=== PATIENT | female | born 1945 | race Caucasian/White ===

== ENCOUNTER 2017-06-30 17:19 | Inpatient (IN) | payer OTHER, MEDICARE ==
[2017-06-30] VITALS (9 sets, daily range): BP systolic 146–197; BP diastolic 84–93; PULSE 112–130; RESP 18–32; TEMP 98.1–98.7; O2SAT 82–96
[~2017-06-30] VITALS: Ht 162.6 cm; Wt 61.8 kg
[~2017-06-30 17:19] MED LIST: LORTA5 PO; TAMO20TA4 PO
[2017-06-30] MEDS ORDERED: methylPREDNISolone SOD SUCC 125 MG/2 ML VIAL IV PUSH ONE (17:45)
[2017-06-30] MEDS ORDERED: SODIUM CHLORIDE 0.9% FLUSH 10 ML FLUSH IVF PRN (17:45)
--- NOTE | 2017-06-30 17:48 | PD ---
HPI Chief Complaint: Respiratory Symptoms Time Seen by Provider: 17:31 Travel History International Travel<30 days: No Contact w/Intl Traveler<30days: No Traveled to known affect area: No History of Present Illness HPI The patient was seen and examined in the presence of the nurse. This patient complains of shortness of breath. It has been gradually worsening over 2 weeks. She was a smoker until 3 years ago. She uses an inhaler on occasion. She denies formal diagnosis of pulmonary disease. She denies fever or productive cough or chest pain. She has history of breast cancer but at this point she says that is cured and she is not getting chemoradiation. She did have a mastectomy. No history of PE. No alleviating factors. No exacerbating factors. Symptom severity is severe PFSH Past Medical History Arthritis: No Asthma: No Autoimmune Disease: No Blood Disorders: No Heart Rhythm Problems: No Cancer: Yes (BREAST) Cardiovascular Problems: No High Cholesterol: No Chemotherapy: Yes (BREAST CA) Chest Pain: No Congestive Heart Failure: No COPD: No Cerebrovascular Accident: No Diabetes: No Diminished Hearing: No Endocrine: No GERD: No Glaucoma: No Genitourinary: No Headaches: No Hepatitis: No Hiatal Hernia: No Hypertension: No Immune Disorder: No Kidney Stones: No Musculoskeletal: No Neurologic: No Psychiatric: No Reproductive: No Respiratory: No Immunizations Current: Yes Migraines: No Myocardial Infarction: No Radiation Therapy: Yes Seizures: No Sickle Cell Disease: No Sleep Apnea: No Thyroid Disease: No Ulcer: No Influenza Vaccination: Yes ?: Not Menopausal: Yes Past Surgical History Abdominal Surgery: No AICD: No Appendectomy: No Arteriovenous Shunt: No Cardiac Surgery: No Cholecystectomy: No Ear Surgery: No Eye Surgery: No Genitourinary Surgery: No Gynecologic Surgery: Yes (MASTECTOMY R. BREAST, LYMPH NODES) Insulin Pump: No Joint Replacement: No Mastectomy: Yes (RIGHT BREAST 2006 WITH CHEMOTHERAPY RT AXILLA 2013 BREAST CA RETURNED) Oral Surgery: Yes (TOOTH EXTRACTIONS FOR DENTURES) Pacemaker: No Thoracic Surgery: Yes (BREAST CANCER RIGHT) Other Surgery: Yes (R MASTECTOMY) Social History Alcohol Use: Yes (1-2 DAILY) Tobacco Use: No Substance Use: No Allergies-Medications (Allergen,Severity, Reaction): Coded Allergies: No Known Allergies (Verified Allergy, Unknown, 06/30/17) Reported Meds & Prescriptions Reported Meds & Active Scripts Active [place] 5/325 (Hydrocodone/Acetaminophen 5/325) 325 Mg/5 Mg Tab 1 Tab PO Q4HPRN Reported Tamoxifen Citrate 20 Mg Tab 20 Mg PO DAILY Review of Systems General / Constitutional: No: Fever Eyes: No: Visual changes HENT: No: Headaches Cardiovascular: Positive: Tachycardia, No: Chest Pain or Discomfort Respiratory: Positive: Shortness of Breath, Wheezing Gastrointestinal: No: Abdominal Pain Genitourinary: No: Dysuria Musculoskeletal: No: Pain Skin: No Rash Neurologic: No: Weakness Psychiatric: No: Depression Endocrine: No: Polydipsia Hematologic/Lymphatic: No: Easy Bruising Physical Exam Narrative GENERAL: Well-nourished, well-developed patient in respiratory distress. SKIN: Focused skin assessment reveals no rash and nodules. Skin is Warm and dry. HEAD: Atraumatic. Normocephalic. EYES: Pupils equal and round. No scleral icterus. No injection or drainage. ENT: No nasal bleeding or discharge. Mucous membranes pink and moist. NECK: Trachea midline. No JVD. CARDIOVASCULAR: Regular rate and rhythm. No murmur appreciated. RESPIRATORY: Positive accessory muscle use. Expiratory wheezing diffusely with diminished breath sounds throughout. Breath sounds equal bilaterally. GASTROINTESTINAL: Abdomen soft, non-tender, nondistended. Hepatic and splenic margins not palpable. MUSCULOSKELETAL: No obvious deformities. No clubbing. No cyanosis. No edema. NEUROLOGICAL: Awake and alert. No obvious cranial nerve deficits. Motor grossly within normal limits. Normal speech. PSYCHIATRIC: Appropriate mood and affect; insight and judgment normal. Data Data Last Documented VS Vital Signs Date Time Temp Pulse Resp B/P (MAP) Pulse Ox O2 Delivery O2 Flow Rate FiO2 06/30/17 19:24 94 Nasal Cannula 4.00 06/30/17 19:24 30 06/30/17 19:24 130 188/86 (120) 06/30/17 18:23 98.1 Orders Orders Complete Blood Count With Diff (06/30/17 17:38) Basic Metabolic Panel (Bmp) (06/30/17 17:38) Iv Access Insert/Monitor (06/30/17 17:38) Electrocardiogram (06/30/17 17:38) Ecg Monitoring (06/30/17 17:38) Oximetry (06/30/17 17:38) Oxygen Administration (06/30/17 17:38) Chest, Single Ap (06/30/17 17:38) Sodium Chloride 0.9% Flush (Ns Flush) (06/30/17 17:45) Methylprednisolone So Succ Inj (Solumedr (06/30/17 17:45) Albuterol-Ipratropium Neb (Duoneb Neb) (06/30/17 17:45) Ct Pulmonary Angiogram (06/30/17 ) Iohexol 350 Inj (Omnipaque 350 Inj) (06/30/17 19:26) Drug Screen, Random Urine (06/30/17 20:21) Admit To Inpatient (06/30/17 ) Vital Signs (Adult) Q4H (06/30/17 20:21) Activity Oob Ad [place] (06/30/17 ) Diet Heart Healthy (07/01/17 Breakfast) Sodium Chloride 0.9% Flush (Ns Flush) (06/30/17 21:00) Sodium Chloride 0.9% Flush (Ns Flush) (06/30/17 20:30) Albuterol-Ipratropium Neb (Duoneb Neb) (06/30/17 20:30) Albuterol-Ipratropium Neb (Duoneb Neb) (06/30/17 22:00) Budeson-Formot 160-4.5 Mcg Inh (Symbicor (06/30/17 21:00) Methylprednisolone So Succ Inj (Solumedr (06/30/17 20:30) Azithromycin (Zithromax) (06/30/17 20:30) Levofloxacin (Levaquin) (06/30/17 20:30) Basic Metabolic Panel (Bmp) (07/01/17 06:00) Complete Blood Count With Diff (07/01/17 06:00) Resp Incentive Spirometry (06/30/17 ) Consult Pulmonology (06/30/17 ) Copd Educator Consult (06/30/17 ) Heparin Inj (Heparin Inj) (06/30/17 21:00) Scd Bilateral/Knee High HUSSAIN.BID (06/30/17 20:21) Inpatient Certification (06/30/17 ) Clonidine (Catapres) (06/30/17 20:30) Acetylcysteine 10% Neb (Mucomyst 10% Neb (07/01/17 00:00) Admit Order (Ed Use Only) (06/30/17 20:31) Labs Laboratory Tests Test 06/30/17 17:50 White Blood Count 9.2 TH/MM3 Red Blood Count 3.19 MIL/MM3 Hemoglobin 11.1 GM/DL Hematocrit 32.6 % Mean Corpuscular Volume 102.3 FL Mean Corpuscular Hemoglobin 34.7 PG Mean Corpuscular Hemoglobin Concent 33.9 % Red Cell Distribution Width 13.2 % Platelet Count 344 TH/MM3 Mean Platelet Volume 7.3 FL Neutrophils (%) (Auto) 73.6 % Lymphocytes (%) (Auto) 10.6 % Monocytes (%) (Auto) 8.8 % Eosinophils (%) (Auto) 6.6 % Basophils (%) (Auto) 0.4 % Neutrophils # (Auto) 6.8 TH/MM3 Lymphocytes # (Auto) 1.0 TH/MM3 Monocytes # (Auto) 0.8 TH/MM3 Eosinophils # (Auto) 0.6 TH/MM3 Basophils # (Auto) 0.0 TH/MM3 CBC Comment DIFF FINAL Differential Comment Blood Urea Nitrogen 8 MG/DL Creatinine 0.79 MG/DL Random Glucose 111 MG/DL Calcium Level 9.2 MG/DL Sodium Level 125 MEQ/L Potassium Level 4.5 MEQ/L Chloride Level 90 MEQ/L Carbon Dioxide Level 23.1 MEQ/L Anion Gap 12 MEQ/L Estimat Glomerular Filtration Rate 72 ML/MIN MDM Medical Decision Making Medical Screen Exam Complete: Yes Emergency Medical Condition: Yes Medical Record Reviewed: Yes Differential Diagnosis COPD exacerbation, pneumonia, pneumothorax Narrative Course I have reviewed the patient's electronic medical record. I reviewed her oncology evaluation from May 2017 IV placed and labs sent I gave her a series of nebulizer treatments and place her on oxygen I gave her IV steroids I reviewed her chest x-ray which shows no pneumothorax or consolidation Patient was hypoxic upon room air and arrived critically ill Labs are reviewed. She is hyponatremic [address] of the chest to rule out PE. She does not have one. However she does have significant mucus plugging of the lower airways I reviewed this with the hospitalist will admit to intermediate care given her oxygen needs. I do not think she needs intensive care at this time There was some improvement with nebulizers but she is still short of breath She is saturating 96% on 4 L at this time Critical Care Narrative Aggregate critical care time was 40 minutes. Time to perform other separately billable procedures was not included in the critical care time. My time did not include minutes spent treating any other patients simultaneously or on activities that did not directly contribute to the patient's treatment. The services I provided to this patient were to treat and/or prevent clinically significant deterioration that could result in: Cardiopulmonary arrest, cardiac arrhythmia, respiratory collapse I provided critical care services requiring my management, as noted below: Chart data review, documentation time, medication orders and management, vital sign assessments/reviewing monitor data, ordering and reviewing lab tests, ordering and interpreting/reviewing x-rays and diagnostic studies, care of the patient and discussion of the patient with the admitting physicians. Diagnosis Primary Impression: Dyspnea Qualified Codes: R06.03 - Acute respiratory distress Additional Impressions: Mucus plugging of bronchi COPD exacerbation Admitting Information Admitting Physician Requests: Admit Benigno Marroquin MD June 30, 2017 17:48
[2017-06-30] MEDS: RESP: ALBUTEROL 2.5 MG/IPRATROPIUM 0.5 MG NEB (SCH) INH ×2 (17:49→23:35)
[2017-06-30 18:06] LABS: AUTOMATED NEUTROPHIL # 6.8 TH/MM3 (1.8-7.7); BASOPHIL % 0.4 % (0.0-2.0); EOSINOPHIL # 0.6 TH/MM3 (0-0.4); EOSINOPHIL % 6.6 % (0.0-4.0); HEMATOCRIT 32.6 % (35.0-46.0); HEMOGLOBIN 11.1 GM/DL (11.6-15.3); LYMPH % 10.6 % (9.0-44.0); MEAN CELL VOLUME 102.3 FL (80.0-100.0); MEAN CORPUSCULAR HEMOGLOBIN 34.7 PG (27.0-34.0); MEAN CORPUSCULAR HGB CONC 33.9 % (32.0-36.0); MEAN PLATELET VOLUME 7.3 FL (7.0-11.0); MONO % 8.8 % (0.0-8.0); MONOCYTE # 0.8 TH/MM3 (0-0.9); NEUT % 73.6 % (16.0-70.0); PLATELET COUNT 344 TH/MM3 (150-450); RED BLOOD COUNT 3.19 MIL/MM3 (4.00-5.30); RED CELL DISTRIBUTION WIDTH 13.2 % (11.6-17.2); WHITE BLOOD COUNT 9.2 TH/MM3 (4.0-11.0)
--- NOTE | 2017-06-30 18:17 | RADRPT ---
EXAM DATE/TIME: 06/30/2017 17:52 [facility] COMPARISON: No previous studies available for comparison. INDICATIONS : Shortness of breath. MEDICAL HISTORY : Carcinoma, breast. SURGICAL HISTORY : Mastectomy, right. ENCOUNTER: Initial ACUITY: 2 weeks PAIN SCORE: 0/10 LOCATION: Bilateral chest FINDINGS: A single view of the chest demonstrates no focal consolidation or significant effusion. Heart size wi thin normal limits. Mildly tortuous aorta. Apical pleural thickening on the right with parenchymal sc arring. Multiple surgical clips right axillary region. CONCLUSION: 1. No active disease. Diego Bustillo MD on June 30, 2017 at 18:14 Board Certified Radiologist. This report was verified electronically.
[2017-06-30 18:26] LABS: BICARBONATE 23.1 MEQ/L (21.0-32.0); CALCIUM 9.2 MG/DL (8.5-10.1)
[2017-06-30 18:29] LABS: CREATININE 0.79 MG/DL (0.50-1.00)
[2017-06-30] MEDS ORDERED: IOHEXOL 350 MG/ML 10 ML VIAL (for RAD DIAG) IVCONTRAST ONE (19:26)
--- NOTE | 2017-06-30 19:52 | RADRPT ---
EXAM DATE/TIME: 06/30/2017 19:09 [facility] COMPARISON: No previous studies available for comparison. INDICATIONS : Increasing shortness of breath for two weeks. IV CONTRAST: 75 cc Omnipaque 350 (iohexol) IV RADIATION DOSE: 9.17 CTDIvol (mGy) MEDICAL HISTORY : Carcinoma, breast. SURGICAL HISTORY : Mastectomy, right. ENCOUNTER: Initial ACUITY: 2 weeks PAIN SCALE: 6/10 LOCATION: Bilateral chest TECHNIQUE: Volumetric scanning of the chest was performed using a pulmonary embolism protocol MIP images were re constructed. Using automated exposure control and adjustment of the mA and/or kV according to patien t size, radiation dose was kept as low as reasonably achievable to obtain optimal diagnostic quality images. DICOM format image data is available electronically for review and comparison. Follow-up recommendations for detected pulmonary nodules are based at a minimum on nodule size and pa tient risk factors according to Fleischner Society Guidelines. FINDINGS: No filling defects are seen in the pulmonary arteries to suggest pulmonary embolic disease. There is pleural thickening and parenchymal opacity in the upper right lung this may be related to radiation c hange. There is fairly extensive intraluminal mucoid plugging in the distal right bronchus intermediu s and especially extensive plugging in the right lower lobe segmental bronchi and to a lesser extent in the right middle lobe bronchi. On the left side there is peribronchial thickening and some mild mucoid plugging and distal airways e specially in the left lower lobe. There is no hilar, mediastinal axillary adenopathy. Moderate coronary calcifications. No acute findin gs in the upper abdomen. CONCLUSION: 1. There is peribronchial thickening and fairly extensive mucoid plugging of the lower airways, espec ially in the right lower lobe. Differential diagnosis includes chronic bronchitis or some form of chr onic allergic response or asthma. 2. Negative for pulmonary embolus. Diego Bustillo MD on June 30, 2017 at 19:41 Board Certified Radiologist. This report was verified electronically.
[2017-06-30] MEDS ORDERED: cloNIDine HCL 0.1 MG TAB PO PRN (20:30)
[2017-06-30] MEDS ORDERED: RESP: ALBUTEROL 2.5 MG/IPRATROPIUM 0.5 MG NEB (PRN) NEB (20:45)
[2017-06-30] MEDS: LEVOFLOXACIN 750 MG TAB PO SCH (20:49)
[2017-06-30] MEDS: HEPARIN SODIUM - SQ 10,000 UNITS/ML VIAL SQ SCH (20:49)
[2017-06-30] MEDS: SODIUM CHLORIDE 0.9% FLUSH 10 ML FLUSH IV FLUSH SCH (21:00)
[2017-06-30] MEDS: BUDESONIDE-FORMOTEROL 160/4.5 MCG INHALER INH SCH (21:09)
[2017-06-30] MEDS ORDERED: RESP: ALBUTEROL 2.5 MG/IPRATROPIUM 0.5 MG NEB (SCH) INH (22:00)
[2017-06-30] MEDS: methylPREDNISolone SOD SUCC 125 MG/2 ML VIAL IV PUSH SCH (23:32)
[2017-06-30] MEDS: RESP: ACETYLCYSTEINE 10% 10 ML NEB NEB SCH (23:35)
[2017-07-01] VITALS (30 sets, daily range): BP systolic 127–155; BP diastolic 60–89; PULSE 89–138; RESP 17–39; TEMP 97.1–98.2; O2SAT 89–94
[2017-07-01] MEDS: RESP: ACETYLCYSTEINE 10% 10 ML NEB NEB SCH ×6 (03:29→23:10)
[2017-07-01] MEDS: RESP: ALBUTEROL 2.5 MG/IPRATROPIUM 0.5 MG NEB (SCH) INH ×6 (03:29→23:10)
[2017-07-01 05:12] LABS: AUTOMATED NEUTROPHIL # 5.4 TH/MM3 (1.8-7.7); BASOPHIL % 0.5 % (0.0-2.0); EOSINOPHIL % 0.1 % (0.0-4.0); HEMATOCRIT 31.5 % (35.0-46.0); HEMOGLOBIN 10.4 GM/DL (11.6-15.3); LYMPH % 5.4 % (9.0-44.0); LYMPHOCYTE # 0.3 TH/MM3 (1.0-4.8); MEAN CELL VOLUME 102.1 FL (80.0-100.0); MEAN CORPUSCULAR HEMOGLOBIN 33.6 PG (27.0-34.0); MONO % 0.9 % (0.0-8.0); MONOCYTE # 0.1 TH/MM3 (0-0.9); NEUT % 93.1 % (16.0-70.0); PLATELET COUNT 312 TH/MM3 (150-450); RED BLOOD COUNT 3.09 MIL/MM3 (4.00-5.30); RED CELL DISTRIBUTION WIDTH 13.3 % (11.6-17.2); WHITE BLOOD COUNT 5.9 TH/MM3 (4.0-11.0)
[2017-07-01] MEDS: methylPREDNISolone SOD SUCC 125 MG/2 ML VIAL IV PUSH SCH ×4 (05:17→23:44)
[2017-07-01 05:30] LABS: BICARBONATE 21.8 MEQ/L (21.0-32.0); CREATININE 0.61 MG/DL (0.50-1.00)
[2017-07-01] MEDS: ACETAMINOPHEN 325 MG TAB PO PRN (06:03)
[2017-07-01] MEDS: SODIUM CHLOR 0.9% 1000 ML INJ 1,000 ML IV SCH ×2 (06:04→17:55)
[2017-07-01] MEDS: SODIUM CHLORIDE 0.9% FLUSH 10 ML FLUSH IV FLUSH SCH ×2 (08:54→21:00)
[2017-07-01] MEDS: HEPARIN SODIUM - SQ 10,000 UNITS/ML VIAL SQ SCH ×2 (08:54→20:59)
[2017-07-01] MEDS: AZITHROMYCIN 250 MG TAB PO SCH (08:54)
[2017-07-01] MEDS: BUDESONIDE-FORMOTEROL 160/4.5 MCG INHALER INH SCH ×2 (08:54→20:57)
[2017-07-01] MEDS ORDERED: PNEUMOCOCCAL POLYVALENT INJ 25 MCG/0.5 ML SYR IM ONE (09:00)
--- NOTE | 2017-07-01 11:31 | EKG ---
Date Performed: 06/30/2017 Time Performed: 17:33:57 PTAGE: 72 years EKG: SINUS TACHYCARDIA ABNORMAL RHYTHM ECG PREVIOUS TRACING : 11/04/1997 20.28 DOCTOR: Yovani Hess Interpretating Date/Time 07/01/2017 11:29:28
[2017-07-01] MEDS: ACETAMINOPHEN/HYDROcodone 325 MG/5 MG TAB PO PRN ×2 (12:00→21:15)
--- NOTE | 2017-07-01 14:06 | HHI.HP ---
[facility] No Primary Care Physician Admission Diagnosis dyspnea,advanced mucous plugging Diagnoses: (1) Acute respiratory failure with hypoxia Diagnosis: Principal (2) Mucus plugging of bronchi Diagnosis: Principal (3) Hyponatremia Diagnosis: Principal (4) Hyperglycemia Diagnosis: Principal Chief Complaint: Shortness of breath and difficulty breathing Travel History International Travel<30 Days: No Contact w/Intl Traveler <30 Da: No Traveled to Known Affected Are: No History of Present Illness This is a 72-year-old female with known history of breast cancer, chronic tobacco use who presented to the hospital because of shortness of breath and dyspnea. Patient states that she is in normal state of health until last week when she started developing upper respiratory symptoms with cough and congestion. She started using Robitussin and Mucinex without any improvement. Then over the weekend on Friday and Friday her respiratory status progressively got worse where she cannot take 2 steps without getting very dyspneic. Patient states that she could not even move around or catch her breath on Friday so she came to the emergency department for evaluation. On presentation the patient had O2 saturation of 82% she is immediately put on oxygen with improvement to 94%. Patient still requiring increased O2 supplementation. Patient had CT scan done which did show peribronchial thickening and fairly extensive mucoid plugging in the lower airways especially the right lower lobe. Because of her hypoxia, mucous plugging, difficulty breathing patient was admitted to the ICU for continued care and management. Patient indicates this is similar to when she had pneumonia back in March. She states that her primary medical doctor treated her then with antibiotic injection as well as 2 pill form antibiotics. She try to contact her primary medical doctor before coming to the hospital however he is since retired. Review of Systems Respiratory: COMPLAINS OF: Cough, Shortness of breath Cardiovascular: COMPLAINS OF: Dyspnea on Exertion Except as stated in HPI: all other systems reviewed are Neg Past Family Social History Past Medical History History of breast cancer Chronic tobacco use Past Surgical History Right breast maxillectomy Right axillary cancer removal Right cataract surgery Reported Medications Reported Meds & Active Scripts Active Allergies: Coded Allergies: No Known Allergies (Verified Allergy, Unknown, 06/30/17) Family History Reviewed and significant for mother with lung cancer Social History Patient states that he still smoking intermittently 1-2 cigarettes daily. She used to smoke up to a pack of cigarettes a day since she was 25 years old. Patient indicates that she does use alcohol occasionally. Denies any illicit drug use Physical Exam Vital Signs Vital Signs Date Time Temp Pulse Resp B/P (MAP) Pulse Ox O2 Delivery O2 Flow Rate FiO2 07/01/17 11:01 120 22 132/66 (88) 07/01/17 10:01 120 24 132/62 (85) 07/01/17 10:00 110 07/01/17 09:01 126 26 141/72 (95) 07/01/17 08:01 97.1 128 39 139/73 (95) 07/01/17 08:00 89 07/01/17 07:34 93 Nasal Cannula 3.00 07/01/17 07:03 23 07/01/17 06:00 114 07/01/17 04:30 120 07/01/17 04:30 120 20 93 07/01/17 04:00 138 07/01/17 04:00 98.0 138 32 144/76 (98) 92 07/01/17 03:00 118 22 151/70 (97) 92 07/01/17 02:00 116 07/01/17 02:00 116 22 140/82 (101) 89 07/01/17 01:00 122 06/30/17 23:35 93 Nasal Cannula 3.00 06/30/17 23:30 112 06/30/17 22:36 98.7 120 32 146/84 (104) 95 06/30/17 20:43 95 Nasal Cannula 4.00 06/30/17 19:24 94 Nasal Cannula 4.00 06/30/17 19:24 30 94 Nasal Cannula 4.00 06/30/17 19:24 130 30 188/86 (120) 94 Nasal Cannula 4.00 06/30/17 18:23 98.1 127 18 186/88 (120) 93 Nasal Cannula 3.00 06/30/17 17:56 20 96 Nasal Cannula 4.00 06/30/17 17:50 95 Nasal Cannula 2.00 06/30/17 17:40 95 Nasal Cannula 4.00 06/30/17 17:36 22 94 Nasal Cannula 4.00 06/30/17 17:33 98.1 124 22 197/93 (127) 82 Physical Exam GENERAL: Well-developed, well-nourished, in no acute distress. alert and orientated HEENT: Head is normocephalic without any lesions or masses noted. Facial features are symmetric. Eyes: Pupils equal round reactive to light. Extraocular muscles are intact. Conjunctivae were clear. Oropharyngeal: Pharynx without any erythema edema. Tongue is midline without deviation. Buccal mucosa is moist without any masses or lesions NECK: Supple without any masses. Trachea midline no deviation. No JVD, no bruits are appreciated CARDIAC: Tachycardia, regular rhythm. S1/S2 are heard. No murmurs gallops or rubs. LUNGS: Diminished breath sounds noted bilaterally. No wheeze, rhonchi or rales. No use of accessory muscles on inspiration or expiration. ABDOMEN: Soft, nontender. Nondistended. Bowel sounds heard in all 4 quadrants. No organomegaly or masses. Negative rebound, negative guarding EXTREMITIES: No edema, pulses are equal bilaterally. No cyanosis or clubbing NEUROLOGY: Mood and affect appear appropriate. Cranial nerves II through XII grossly intact. Muscle strength 5/5 in upper and lower extremities bilaterally. Deep tendon reflexes are 2+ in upper and lower extremities bilaterally. Laboratory Laboratory Tests Test 06/30/17 17:50 06/30/17 20:50 07/01/17 04:50 White Blood Count 9.2 5.9 Red Blood Count 3.19 3.09 Hemoglobin 11.1 10.4 Hematocrit 32.6 31.5 Mean Corpuscular Volume 102.3 102.1 Mean Corpuscular Hemoglobin 34.7 33.6 Mean Corpuscular Hemoglobin Concent 33.9 33.0 Red Cell Distribution Width 13.2 13.3 Platelet Count 344 312 Mean Platelet Volume 7.3 7.0 Neutrophils (%) (Auto) 73.6 93.1 Lymphocytes (%) (Auto) 10.6 5.4 Monocytes (%) (Auto) 8.8 0.9 Eosinophils (%) (Auto) 6.6 0.1 Basophils (%) (Auto) 0.4 0.5 Neutrophils # (Auto) 6.8 5.4 Lymphocytes # (Auto) 1.0 0.3 Monocytes # (Auto) 0.8 0.1 Eosinophils # (Auto) 0.6 0.0 Basophils # (Auto) 0.0 0.0 CBC Comment DIFF FINAL DIFF FINAL Differential Comment Blood Urea Nitrogen 8 8 Creatinine 0.79 0.61 Random Glucose 111 144 Calcium Level 9.2 9.0 Sodium Level 125 123 Potassium Level 4.5 3.9 Chloride Level 90 87 Carbon Dioxide Level 23.1 21.8 Anion Gap 12 14 Estimat Glomerular Filtration Rate 72 96 Urine Opiates Screen POS Urine Barbiturates Screen NEG Urine Amphetamines Screen NEG Urine Benzodiazepines Screen NEG Urine Cocaine Screen NEG Urine Cannabinoids Screen NEG Result Diagram: 07/01/17 0450 07/01/17 0450 Imaging Last Impressions Chest X-Ray 06/30/17 1738 Signed Impressions: Service Date/Time: Friday, June 30, 2017 17:52 - CONCLUSION: 1. No active disease. Diego Bustillo MD CT Angiography 06/30/17 0000 Signed Impressions: Service Date/Time: Friday, June 30, 2017 19:09 - CONCLUSION: 1. There is peribronchial thickening and fairly extensive mucoid plugging of the lower airways, especially in the right lower lobe. Differential diagnosis includes chronic bronchitis or some form of chronic allergic response or asthma. 2. Negative for pulmonary embolus. Diego Bustillo MD Caprini VTE Risk Assessment Caprini VTE Risk Assessment: Mod/High Risk (score >= 2) Caprini Risk Assessment Model Point Value = 1 Point Value = 2 Point Value = 3 Point Value = 5 Age 41-60 Minor surgery BMI > 25 kg/m2 Swollen legs Varicose veins or History of unexplained or recurrent spontaneous Oral contraceptives or hormone replacement Sepsis (< 1 month) Serious lung disease, including pneumonia (< 1 month) Abnormal pulmonary function Acute myocardial infarction Congestive heart failure (< 1 month) History of inflammatory bowel disease Medical patient at bed rest Age 61-74 Arthroscopic surgery Major open surgery (> 45 min) Laparoscopic surgery (> 45 min) Malignancy Confined to bed (> 72 hours) Immobilizing plaster cast Central venous access Age >= 75 History of VTE Family history of VTE Factor V Leiden Prothrombin [id number] Lupus anticoagulant Anticardiolipin antibodies Elevated serum homocysteine Heparin-induced thrombocytopenia Other congenital or acquired thrombophilia Stroke (< 1 month) Elective arthroplasty Hip, pelvis, or leg fracture Acute spinal cord injury (< 1 month) Prophylaxis Regimen Total Risk Factor Score Risk Level Prophylaxis Regimen 0-1 Low Early ambulation 2 Moderate Order ONE of the following: *Sequential Compression Device (SCD) *Heparin 5000 units SQ BID 3-4 Higher Order ONE of the following medications: *Heparin 5000 units SQ TID *Enoxaparin/Lovenox 40 mg SQ daily (WT < 150 kg, CrCl > 30 mL/min) *Enoxaparin/Lovenox 30 mg SQ daily (WT < 150 kg, CrCl > 10-29 mL/min) *Enoxaparin/Lovenox 30 mg SQ BID (WT < 150 kg, CrCl > 30 mL/min) AND/OR *Sequential Compression Device (SCD) 5 or more Highest Order ONE of the following medications: *Heparin 5000 units SQ TID (Preferred with Epidurals) *Enoxaparin/Lovenox 40 mg SQ daily (WT < 150 kg, CrCl > 30 mL/min) *Enoxaparin/Lovenox 30 mg SQ daily (WT < 150 kg, CrCl > 10-29 mL/min) *Enoxaparin/Lovenox 30 mg SQ BID (WT < 150 kg, CrCl > 30 mL/min) AND *Sequential Compression Device (SCD) Assessment and Plan Assessment and Plan Acute hypoxic respiratory failure -Multifactorial with chronic tobacco use, mucous plugging, possible underlying chronic obstructive pulmonary disease -Continue O2 supplementation to maintain O2 sats greater than 92% -Continue Levaquin, Zithromax -Continue Solu-Medrol -Continue duo nebs/Mucomyst -Continue Symbicort -Add guaifenesin -Start Acapella -Tipple Repairer consulted, awaiting recommendations -Patient will likely require bronchoscopy for mucous plug removal for definitive treatment -Check influenza testing, sputum culture, Legionella, strep pneumo Sinus tachycardia -Likely secondary to respiratory failure, albuterol, steroid -Check TSH Hyponatremia -Unknown etiology -Obtain osmolality studies, urine sodium Hyperglycemia -Could be secondary to steroids -Check hemoglobin A1c -Accu-Cheks with sliding scale insulin -Start diabetic diet DVT prevention -Subcutaneous heparin Physician Certification 2 Midnight Certification Type: Admission for Inpatient Services Order for Inpatient Services The services are ordered in accordance with Medicare regulations or non- Medicare payer requirements, as applicable. In the case of services not specified as inpatient-only, they are appropriately provided as inpatient services in accordance with the 2-midnight benchmark. Estimated LOS (days): 3 days is the estimated time the patient will need to remain in the hospital, assuming treatment plan goals are met and no additional complications. Post-Hospital Plan: Not yet determined Benigno Rene July 01, 2017 14:06
[2017-07-01] MEDS ORDERED: GLUCAGON 1 MG/ML VIAL OTHER PRN (14:15)
[2017-07-01] MEDS ORDERED: DEXTROSE 50% IN WATER 50 ML VIAL(D50) IV PUSH PRN (14:15)
[2017-07-01] MEDS: guaiFENesin E.R. 600 MG TAB PO SCH ×2 (15:19→20:57)
[2017-07-01] MEDS: INSULIN ASPART SUPPLEMENTAL SCALE SQ SCH ×2 (17:35→21:14)
[2017-07-01] MEDS: LEVOFLOXACIN 750 MG TAB PO SCH (20:57)
[2017-07-01] MEDS: BENZONATATE 100 MG CAP PO PRN (21:17)
[2017-07-01 22:06] LABS: HEMOGLOBIN A1C 5.1 % (4.3-6.0)
[2017-07-02] VITALS (38 sets, daily range): BP systolic 103–164; BP diastolic 51–88; PULSE 109–128; RESP 13–31; TEMP 97.6–98.9; O2SAT 91–98
[2017-07-02] MEDS: ACETAMINOPHEN/HYDROcodone 325 MG/5 MG TAB PO PRN ×2 (01:21→23:56)
[2017-07-02 01:48] LABS: SODIUM,RANDOM URINE 31 MEQ/L
[2017-07-02] MEDS ORDERED: diphenhydrAMINE HCL 25 MG CAP PO ONE (02:15)
[2017-07-02 02:19] LABS: OSMOLALITY,URINE 155 MOSM/KG (300-1300)
[2017-07-02] MEDS: RESP: ACETYLCYSTEINE 10% 10 ML NEB NEB SCH ×6 (03:19→23:05)
[2017-07-02] MEDS: RESP: ALBUTEROL 2.5 MG/IPRATROPIUM 0.5 MG NEB (SCH) INH ×6 (03:19→23:04)
[2017-07-02] MEDS: SODIUM CHLOR 0.9% 1000 ML INJ 1,000 ML IV SCH (04:51)
[2017-07-02 05:37] LABS: AUTOMATED NEUTROPHIL # 13.1 TH/MM3 (1.8-7.7); BASOPHIL # 0.4 TH/MM3 (0-0.2); BASOPHIL % 2.8 % (0.0-2.0); HEMATOCRIT 30.6 % (35.0-46.0); LYMPH % 2.9 % (9.0-44.0); LYMPHOCYTE # 0.4 TH/MM3 (1.0-4.8); MEAN CELL VOLUME 101.8 FL (80.0-100.0); MEAN CORPUSCULAR HEMOGLOBIN 33.4 PG (27.0-34.0); MEAN CORPUSCULAR HGB CONC 32.8 % (32.0-36.0); MEAN PLATELET VOLUME 7.4 FL (7.0-11.0); MONO % 2.6 % (0.0-8.0); MONOCYTE # 0.4 TH/MM3 (0-0.9); NEUT % 91.7 % (16.0-70.0); PLATELET COUNT 319 TH/MM3 (150-450); RED CELL DISTRIBUTION WIDTH 13.4 % (11.6-17.2); WHITE BLOOD COUNT 14.3 TH/MM3 (4.0-11.0)
[2017-07-02] MEDS: methylPREDNISolone SOD SUCC 125 MG/2 ML VIAL IV PUSH SCH ×4 (05:43→23:56)
[2017-07-02 05:56] LABS: BICARBONATE 21.9 MEQ/L (21.0-32.0); CALCIUM 8.5 MG/DL (8.5-10.1); CREATININE 0.5 MG/DL (0.50-1.00); MAGNESIUM 1.7 MG/DL (1.5-2.5)
[2017-07-02] MEDS: INSULIN ASPART SUPPLEMENTAL SCALE SQ SCH ×4 (08:00→22:08)
--- NOTE | 2017-07-02 08:34 | MB ---
cc: Raj Navas MD DATE: 07/01/2017 REQUESTING PHYSICIAN: Benigno Rene MD REASON FOR CONSULTATION: Evaluate for pneumonia and shortness of breath and respiratory insufficiency. HISTORY OF PRESENT ILLNESS: Ms. Stacy is a pleasant 72-year-old female with history of CA of the breast, status post right breast surgery, then she developed recurrence of the cancer. She had received chemotherapy on the first occasion and radiation the second time. She was not feeling well for the last 2 weeks or so. Recently, she started having cough and congestion, small amount of mucus production, did not have fever. She has no night sweats but was getting more short of breath. She was admitted to the hospital. She had a workup done. Her WBC count is 5.9, hemoglobin 10.4, hematocrit 31.5, MCV 102, platelet count 312. Sodium 123, potassium 3.9, chloride 87, CO2 of 21, BUN 8, creatinine 0.61. Her toxicology screen was positive for opiates. She had a CTA of the chest done. It does not show any pulmonary embolism. It shows peribronchial thickening with possible mucus plugging and has a right upper lobe infiltrate. Her nasal aspirate influenza antigen is pending. Pneumococcal antigen is negative. Legionella antigen is pending. Currently, she is on 4 liter nasal cannula, looks comfortable. PAST MEDICAL HISTORY: Significant for history of CA of the breast, status post surgery, radiation and chemotherapy, history of right eye cataract surgery done. MEDICATIONS: Currently taking, 1. Mucinex 600 mg twice a day. 2. Tessalon 100 mg 3 times a day. 3. [place] 5/325, 4. Solu-Medrol 40 mg q. 6 hours. 5. Mucomyst nebulizer treatment 6. Albuterol and Atrovent nebulizer treatment 7. Symbicort twice a day. 8. Levaquin 750 mg a day. 8. Zithromax 500 mg a day. ALLERGIES: NO KNOWN DRUG ALLERGIES. SOCIAL HISTORY: She is single. 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 She has a history of smoking, which she quit. FAMILY HISTORY: She has 2 children. REVIEW OF SYSTEMS: Normally, she is up, around and active. Weight is stable. No DVT or pulmonary embolism, no seizure or epilepsy. PHYSICAL EXAMINATION: GENERAL: Moderately built, well nourished female not in acute distress. VITAL SIGNS: Blood pressure 143/69, heart rate 124, temperature 98.2, respirations 22. HEENT: Pupils are equal and reactive to light. Oral mucosa and nasal mucosa normal. NECK: Supple. JVP not raised. CHEST: Scattered rales. HEART: S1, S2 normal. ABDOMEN: Benign. EXTREMITIES: No edema. IMPRESSION: 1. Pneumonia. 2. Mucus plugging. 3. Hyponatremia. 4. Sinus tachycardia. 5. History of carcinoma of the breast. PLAN: I discussed with the patient we will continue antibiotic Levaquin and Zithromax. Aerosol treatment with albuterol and Atrovent. Encouraged her to use Acapella. Continue Mucomyst nebulizer treatment. If her breathing gets worse or there is any worsening of plugging/infilterates, we will consider bronchoscopy. Further treatment will depend on the course in the hospital. Thank you Dr. Benigno Rene for this consult. MD DAV Jonas/SA/ , 07:02 PM , 07:33 PM STELLA
[2017-07-02] MEDS: SODIUM CHLORIDE 0.9% FLUSH 10 ML FLUSH IV FLUSH SCH ×2 (09:00→22:06)
[2017-07-02] MEDS: AZITHROMYCIN 250 MG TAB PO SCH (09:08)
[2017-07-02] MEDS: guaiFENesin E.R. 600 MG TAB PO SCH ×2 (09:08→22:07)
[2017-07-02] MEDS: HEPARIN SODIUM - SQ 10,000 UNITS/ML VIAL SQ SCH ×2 (09:08→22:08)
[2017-07-02] MEDS: BUDESONIDE-FORMOTEROL 160/4.5 MCG INHALER INH SCH ×2 (09:08→22:05)
[2017-07-02] MEDS ORDERED: CHLORHEXIDINE GLUCONATE 2 % 1 PACK (2 CLOTHS)(extra cloths) TOPICAL PRN (09:15)
[2017-07-02] MEDS: ALPRAZolam 0.25 MG TAB PO PRN (10:11)
--- NOTE | 2017-07-02 13:19 | HHI.PR ---
Subjective Remarks Patient seen and examined today for follow-up on acute hypoxic respiratory failure, pneumonia, chronic obstructive pulmonary disease. Patient doing well today. Denies any new complaints. Still status quo with hypoxia requiring 4 L nasal cannula, still tachycardic 120s. Patient does remain afebrile. Patient is eager to go home. Patient remains afebrile Objective Vitals Vital Signs Date Time Temp Pulse Resp B/P (MAP) Pulse Ox O2 Delivery O2 Flow Rate FiO2 07/02/17 11:01 119 30 114/67 (83) 97 07/02/17 10:01 120 30 138/62 (87) 94 07/02/17 10:00 122 07/02/17 09:01 126 24 133/86 (102) 91 07/02/17 08:01 126 23 127/57 (80) 93 07/02/17 08:01 98.9 118 23 127/57 (80) 93 07/02/17 08:00 124 26 94 07/02/17 08:00 112 07/02/17 07:14 98 Nasal Cannula 4.00 07/02/17 07:01 116 13 107/51 (69) 97 07/02/17 07:01 116 13 107/51 (69) 97 07/02/17 06:12 115 07/02/17 06:01 116 15 132/61 (84) 98 07/02/17 05:01 118 14 122/58 (79) 95 07/02/17 04:01 98.8 118 14 103/55 (71) 96 07/02/17 04:00 118 07/02/17 03:01 112 15 124/64 (84) 98 07/02/17 02:01 128 25 164/88 (113) 97 07/02/17 02:00 118 07/02/17 01:01 118 17 137/72 (93) 93 07/02/17 00:01 98.0 128 21 146/66 (92) 92 07/02/17 00:00 120 07/01/17 23:01 122 17 148/70 (96) 93 07/01/17 22:01 128 19 152/67 (95) 94 07/01/17 22:00 125 07/01/17 21:01 128 25 155/76 (102) 93 07/01/17 20:01 98.0 132 19 127/65 (85) 92 07/01/17 19:26 93 Nasal Cannula 4.00 07/01/17 19:01 126 24 154/73 (100) 93 07/01/17 18:01 98.2 124 22 143/69 (93) 93 07/01/17 18:00 123 07/01/17 17:01 122 27 134/60 (84) 89 07/01/17 16:01 134 30 144/89 (107) 90 07/01/17 16:00 123 07/01/17 15:01 116 19 145/70 (95) 07/01/17 14:01 118 20 144/67 (92) 07/01/17 14:00 105 I/O 07/01/17 07/01/17 07/01/17 07/02/17 07/02/17 07/02/17 07:00 15:00 23:00 07:00 15:00 23:00 Intake Total 480 ml 1428 ml 1966 ml Output Total 350 ml 100 ml 1500 ml Balance 130 ml -100 ml 1428 ml 466 ml Intake Oral 480 ml 420 ml IV Total 1008 ml 1966 ml Output Urine Total 350 ml 100 ml 1500 ml Stool Total 0 ml # Voids 4 Result Diagram: 07/02/17 0457 07/02/17 0457 Objective Remarks GENERAL: Well-developed, well-nourished, in no acute distress. alert and orientated HEENT: Head is normocephalic without any lesions or masses noted. Facial features are symmetric. Eyes: Extraocular muscles are intact. Conjunctivae were clear. NECK: Supple without any masses. Trachea midline no deviation. No JVD, CARDIAC: Regular rhythm, regular rate. S1/S2 are heard. No murmurs gallops or rubs. LUNGS: Diminished breath sounds noted bilaterally. No wheeze, rhonchi or rales. No use of accessory muscles on inspiration or expiration. ABDOMEN: Soft, nontender. Nondistended. Bowel sounds heard in all 4 quadrants. No organomegaly or masses. Negative rebound, negative guarding EXTREMITIES: No edema, pulses are equal bilaterally. No cyanosis or clubbing NEUROLOGY: Mood and affect appear appropriate. Cranial nerves II through XII grossly intact. Moving all extremities, speech clear Urinary Catheter: No Vascular Central Line Catheter: No A/P Assessment and Plan Acute hypoxic respiratory failure -Multifactorial with chronic tobacco use, mucous plugging, possible underlying chronic obstructive pulmonary disease -Continue O2 supplementation to maintain O2 sats greater than 92% -Continue Levaquin, Zithromax -Continue Solu-Medrol -Continue duo nebs/Mucomyst -Continue Symbicort -Continue guaifenesin -Continue Acapella -Basket Grader consulted, recommending continuation of current treatment plan -Patient will likely require bronchoscopy if no significant improvement or patient worsens -Influenza testing, Legionella, strep pneumo testing were negative -Awaiting sputum culture Sinus tachycardia -Likely secondary to respiratory failure, albuterol, steroid -TSH 0.781 Hyponatremia -Serum osmolality 272, urine osmolality 155, urine sodium 31 -Start fluid restriction Hyperglycemia -Could be secondary to steroids -Hemoglobin A1c 5.1 -Accu-Cheks with sliding scale insulin -Continue diabetic diet DVT prevention -Subcutaneous heparin Discharge Planning Discharge planning 24-48 hours, depending on patient's response to treatment, weaning off oxygen. Benigno Rene July 02, 2017 13:19
[2017-07-02] MEDS: ACETAMINOPHEN 325 MG TAB PO PRN (18:20)
--- NOTE | 2017-07-02 20:26 | HHI.PR ---
Subjective Remarks 72 YOWF with H/O ca breast, Pn, Hypoxia Breathing better no Fever Started coughing up some sp No Palpitation, has techycardia Objective Vital Signs Vital Signs Date Time Temp Pulse Resp B/P (MAP) Pulse Ox O2 Delivery O2 Flow Rate FiO2 07/02/17 19:01 112 22 132/69 (90) 92 07/02/17 18:01 97.6 116 22 135/68 (90) 92 07/02/17 18:00 114 07/02/17 17:01 116 15 133/66 (88) 96 07/02/17 16:01 122 23 151/72 (98) 93 07/02/17 16:00 121 07/02/17 15:01 118 28 156/67 (96) 95 07/02/17 14:01 118 19 135/63 (87) 93 07/02/17 14:00 109 07/02/17 13:01 119 31 142/60 (87) 93 07/02/17 12:01 98.5 122 16 121/65 (83) 93 07/02/17 12:00 116 07/02/17 11:01 119 30 114/67 (83) 97 07/02/17 10:01 120 30 138/62 (87) 94 07/02/17 10:00 122 07/02/17 09:01 126 24 133/86 (102) 91 07/02/17 08:01 126 23 127/57 (80) 93 07/02/17 08:01 98.9 118 23 127/57 (80) 93 07/02/17 08:00 124 26 94 07/02/17 08:00 112 07/02/17 07:14 98 Nasal Cannula 4.00 07/02/17 07:01 116 13 107/51 (69) 97 07/02/17 07:01 116 13 107/51 (69) 97 07/02/17 06:12 115 07/02/17 06:01 116 15 132/61 (84) 98 07/02/17 05:01 118 14 122/58 (79) 95 07/02/17 04:01 98.8 118 14 103/55 (71) 96 07/02/17 04:00 118 07/02/17 03:01 112 15 124/64 (84) 98 07/02/17 02:01 128 25 164/88 (113) 97 07/02/17 02:00 118 07/02/17 01:01 118 17 137/72 (93) 93 07/02/17 00:01 98.0 128 21 146/66 (92) 92 07/02/17 00:00 120 07/01/17 23:01 122 17 148/70 (96) 93 07/01/17 22:01 128 19 152/67 (95) 94 07/01/17 22:00 125 07/01/17 21:01 128 25 155/76 (102) 93 I/O 07/01/17 07/01/17 07/01/17 07/02/17 07/02/17 07/02/17 07:00 15:00 23:00 07:00 15:00 23:00 Intake Total 480 ml 1428 ml 1966 ml 600 ml Output Total 350 ml 100 ml 1500 ml 480 ml Balance 130 ml -100 ml 1428 ml 466 ml 120 ml Intake Oral 480 ml 420 ml 600 ml IV Total 1008 ml 1966 ml Output Urine Total 350 ml 100 ml 1500 ml 480 ml Stool Total 0 ml # Voids 4 Result Diagram: 07/02/17 0457 07/02/17 0457 Objective Remarks GENERAL: WBWN WF,NAD SKIN: Warm and dry. HEAD: Normocephalic. EYES: No scleral icterus. No injection or drainage. NECK: Supple, trachea midline. No JVD or lymphadenopathy. CARDIOVASCULAR: Regular rate and rhythm without murmurs, gallops, or rubs. RESPIRATORY: Breath sounds equal bilaterally. No accessory muscle use. GASTROINTESTINAL: Abdomen soft, non-tender, nondistended. MUSCULOSKELETAL: No cyanosis, or edema. BACK: Nontender without obvious deformity. No CVA tenderness. A/P Assessment and Plan IMPRESSION: 1. Pneumonia. 2. Mucus plugging. 3. Hyponatremia. 4. Sinus tachycardia. 5. History of carcinoma of the breast. PLAN: Cont Abx Aerosol nebs Mucomyst nebs IV Solumedrol Supplement 02 CXR in Raj Ortiz MD July 02, 2017 20:26
[2017-07-02] MEDS: LEVOFLOXACIN 750 MG TAB PO SCH (22:07)
[2017-07-02] MEDS: SODIUM CHLORIDE 0.9% FLUSH 10 ML FLUSH IV FLUSH PRN (23:56)
[2017-07-03] VITALS (44 sets, daily range): BP systolic 123–158; BP diastolic 61–94; PULSE 90–134; RESP 13–30; TEMP 97.6–98; O2SAT 90–97
[2017-07-03] MEDS: BENZONATATE 100 MG CAP PO PRN
[2017-07-03] MEDS: ALPRAZolam 0.25 MG TAB PO PRN (02:41)
[2017-07-03] MEDS: CHLORHEXIDINE GLUCONATE 2 % 1 PACK (2 CLOTHS)(taper/protocol) TOPICAL SCH (04:00)
[2017-07-03] MEDS: RESP: ALBUTEROL 2.5 MG/IPRATROPIUM 0.5 MG NEB (SCH) INH ×6 (04:14→23:19)
[2017-07-03] MEDS: RESP: ACETYLCYSTEINE 10% 10 ML NEB NEB SCH ×6 (04:14→23:19)
[2017-07-03 05:42] LABS: AUTOMATED NEUTROPHIL # 11.1 TH/MM3 (1.8-7.7); BASOPHIL # 0.4 TH/MM3 (0-0.2); BASOPHIL % 3.2 % (0.0-2.0); EOSINOPHIL % 0.4 % (0.0-4.0); HEMATOCRIT 30.7 % (35.0-46.0); HEMOGLOBIN 9.8 GM/DL (11.6-15.3); LYMPH % 4.3 % (9.0-44.0); LYMPHOCYTE # 0.5 TH/MM3 (1.0-4.8); MEAN CELL VOLUME 102.4 FL (80.0-100.0); MEAN CORPUSCULAR HEMOGLOBIN 32.6 PG (27.0-34.0); MEAN CORPUSCULAR HGB CONC 31.8 % (32.0-36.0); MEAN PLATELET VOLUME 7.4 FL (7.0-11.0); MONO % 2.8 % (0.0-8.0); MONOCYTE # 0.3 TH/MM3 (0-0.9); NEUT % 89.3 % (16.0-70.0); PLATELET COUNT 298 TH/MM3 (150-450); RED CELL DISTRIBUTION WIDTH 13.3 % (11.6-17.2); WHITE BLOOD COUNT 12.3 TH/MM3 (4.0-11.0)
[2017-07-03 05:51] LABS: CALCIUM 8.9 MG/DL (8.5-10.1)
[2017-07-03 05:52] LABS: BICARBONATE 23.2 MEQ/L (21.0-32.0); MAGNESIUM 1.9 MG/DL (1.5-2.5)
[2017-07-03 05:55] LABS: CREATININE 0.54 MG/DL (0.50-1.00)
--- NOTE | 2017-07-03 06:15 | RADRPT ---
EXAM DATE/TIME: 07/03/2017 05:34 [facility] COMPARISON: CHEST SINGLE AP, June 30, 2017, 17:52. INDICATIONS : Shortness of breath MEDICAL HISTORY : Carcinoma, breast. SURGICAL HISTORY : Mastectomy, right. ENCOUNTER: Subsequent ACUITY: 2 weeks PAIN SCORE: 0/10 LOCATION: Bilateral chest FINDINGS: A single view of the chest demonstrates the lungs to be symmetrically aerated without evidence of mas s, infiltrate or effusion. There is stable scarring in the right lung apex. The cardiomediastinal con tours are unremarkable. Osseous structures are intact. Multiple surgical clips and jamal again not ed in the right axilla. Breast implants are present. CONCLUSION: No acute disease. Shaun Farrell MD on July 03, 2017 at 6:13 Board Certified Radiologist. This report was verified electronically.
[2017-07-03] MEDS: SODIUM CHLORIDE 0.9% FLUSH 10 ML FLUSH IV FLUSH PRN ×2 (06:22→23:43)
[2017-07-03] MEDS: methylPREDNISolone SOD SUCC 125 MG/2 ML VIAL IV PUSH SCH ×4 (06:22→23:43)
[2017-07-03] MEDS: INSULIN ASPART SUPPLEMENTAL SCALE SQ SCH ×4 (08:00→21:00)
[2017-07-03] MEDS: AZITHROMYCIN 250 MG TAB PO SCH (08:43)
[2017-07-03] MEDS: guaiFENesin E.R. 600 MG TAB PO SCH ×2 (08:43→22:02)
[2017-07-03] MEDS: ACETAMINOPHEN/HYDROcodone 325 MG/5 MG TAB PO PRN ×2 (08:44→23:43)
[2017-07-03] MEDS: HEPARIN SODIUM - SQ 10,000 UNITS/ML VIAL SQ SCH ×2 (08:45→22:02)
[2017-07-03] MEDS: SODIUM CHLORIDE 0.9% FLUSH 10 ML FLUSH IV FLUSH SCH ×2 (08:46→22:19)
[2017-07-03] MEDS: BUDESONIDE-FORMOTEROL 160/4.5 MCG INHALER INH SCH ×2 (08:46→22:02)
[2017-07-03] MEDS ORDERED: NEBULIZER1 MI1 (10:37)
--- NOTE | 2017-07-03 10:40 | HHI.PR ---
Subjective Remarks Patient seen and examined today for follow-up on hypoxemia, chronic objective pulmonary disease, pneumonia. Patient is improving slowly. She is now down to 2 L nasal cannula with O2 saturations 92-94%. Patient still with mild tachycardia. Patient remains afebrile. Discussed with the patient treatment plan and prognosis. Objective Vitals Vital Signs Date Time Temp Pulse Resp B/P (MAP) Pulse Ox O2 Delivery O2 Flow Rate FiO2 07/03/17 09:44 18 07/03/17 08:00 102 07/03/17 07:41 94 Nasal Cannula 2.00 07/03/17 06:11 107 07/03/17 06:01 108 13 146/71 (96) 96 07/03/17 05:01 112 19 138/61 (86) 96 07/03/17 04:01 98.0 102 15 131/63 (85) 93 07/03/17 04:00 102 07/03/17 03:01 108 18 144/70 (94) 94 07/03/17 02:01 110 15 137/62 (87) 94 07/03/17 02:00 110 07/03/17 01:01 112 16 137/73 (94) 94 07/03/17 00:01 97.6 126 25 158/75 (102) 93 07/03/17 00:00 118 07/02/17 23:01 118 21 144/73 (96) 92 07/02/17 22:01 120 23 146/67 (93) 92 07/02/17 22:00 122 07/02/17 21:01 112 16 123/63 (83) 93 07/02/17 20:01 98.6 120 19 139/68 (91) 92 07/02/17 20:00 113 07/02/17 19:10 92 Nasal Cannula 3.00 07/02/17 19:01 112 22 132/69 (90) 92 07/02/17 18:01 97.6 116 22 135/68 (90) 92 07/02/17 18:00 114 07/02/17 17:01 116 15 133/66 (88) 96 07/02/17 16:01 122 23 151/72 (98) 93 07/02/17 16:00 121 07/02/17 15:01 118 28 156/67 (96) 95 07/02/17 14:01 118 19 135/63 (87) 93 07/02/17 14:00 109 07/02/17 13:01 119 31 142/60 (87) 93 07/02/17 12:01 98.5 122 16 121/65 (83) 93 07/02/17 12:00 116 07/02/17 11:01 119 30 114/67 (83) 97 I/O 07/02/17 07/02/17 07/02/17 07/03/17 07/03/17 07/03/17 06:59 14:59 22:59 06:59 14:59 22:59 Intake Total 1966 ml 600 ml 420 ml Output Total 1500 ml 480 ml 800 ml Balance 466 ml 120 ml -380 ml Intake Oral 600 ml 420 ml IV Total 1966 ml Output Urine Total 1500 ml 480 ml 800 ml # Bowel Movements 0 Result Diagram: 07/03/17 0510 07/03/17 0510 Objective Remarks GENERAL: Well-developed, well-nourished, in no acute distress. alert and orientated HEENT: Head is normocephalic without any lesions or masses noted. Facial features are symmetric. Eyes: Extraocular muscles are intact. Conjunctivae were clear. NECK: Supple without any masses. Trachea midline no deviation. No JVD, CARDIAC: Regular rhythm, regular rate. S1/S2 are heard. No murmurs gallops or rubs. LUNGS: Diminished breath sounds noted bilaterally. No wheeze, rhonchi or rales. No use of accessory muscles on inspiration or expiration. ABDOMEN: Soft, nontender. Nondistended. Bowel sounds heard in all 4 quadrants. No organomegaly or masses. Negative rebound, negative guarding EXTREMITIES: No edema, pulses are equal bilaterally. No cyanosis or clubbing NEUROLOGY: Mood and affect appear appropriate. Cranial nerves II through XII grossly intact. Moving all extremities, speech clear Urinary Catheter: No Vascular Central Line Catheter: No A/P Assessment and Plan Acute hypoxic respiratory failure -Multifactorial with chronic tobacco use, mucous plugging, possible underlying chronic obstructive pulmonary disease -Continue O2 supplementation to maintain O2 sats greater than 92% -Continue Levaquin, Zithromax -Continue Solu-Medrol -Continue duo nebs/Mucomyst -Continue Symbicort -Continue guaifenesin -Continue Acapella -Mattress Inspector consulted, recommending continuation of current treatment plan -Influenza testing, Legionella, strep pneumo testing were negative -Awaiting sputum culture -Obtain home oxygen walk study. Sinus tachycardia -Likely secondary to respiratory failure, albuterol, steroid -TSH 0.781 Hyponatremia -Serum osmolality 272, urine osmolality 155, urine sodium 31 -Start fluid restriction Hyperglycemia -Could be secondary to steroids -Hemoglobin A1c 5.1 -Accu-Cheks with sliding scale insulin -Continue diabetic diet DVT prevention -Subcutaneous heparin Discharge Planning Anticipate discharge planning tomorrow if patient continues to improve. Likely will require home oxygen. Case management consulted for home oxygen, nebulizer Benigno Rene July 03, 2017 10:40
[2017-07-03] MEDS ORDERED: POTASSIUM CHLORIDE 20 MEQ CONTROLLED RELEASE TAB PO ONE (10:45)
[2017-07-03] MEDS ORDERED: OXYGENDME NAS.CANULA (16:24)
--- NOTE | 2017-07-03 18:04 | HHI.PR ---
Subjective Remarks 72 YOWF with H/O ca breast, Pn, Hypoxia Breathing better no Fever Started coughing up some sp Breathing better CXR no ac infilt Objective Vital Signs Vital Signs Date Time Temp Pulse Resp B/P (MAP) Pulse Ox O2 Delivery O2 Flow Rate FiO2 07/03/17 17:01 106 19 123/69 (87) 97 07/03/17 17:00 104 14 96 07/03/17 16:01 97.9 110 26 139/67 (91) 93 07/03/17 16:00 112 20 92 07/03/17 16:00 90 07/03/17 15:01 118 25 133/94 (107) 92 07/03/17 15:00 118 21 91 07/03/17 14:01 106 21 145/66 (92) 95 07/03/17 14:00 98.0 106 23 95 07/03/17 14:00 2.00 07/03/17 14:00 102 07/03/17 13:01 104 19 129/62 (84) 93 07/03/17 13:00 104 24 94 07/03/17 12:01 110 17 136/63 (87) 95 07/03/17 12:00 90 07/03/17 12:00 106 17 95 07/03/17 11:30 112 24 95 07/03/17 11:15 114 19 96 07/03/17 11:01 108 28 124/67 (86) 96 07/03/17 11:00 108 17 96 07/03/17 10:45 108 15 96 07/03/17 10:30 110 17 93 07/03/17 10:15 122 18 90 07/03/17 10:01 112 19 133/65 (87) 93 07/03/17 10:00 102 07/03/17 10:00 114 16 93 07/03/17 09:45 122 18 92 07/03/17 09:44 18 07/03/17 09:30 130 30 92 07/03/17 09:15 122 19 94 07/03/17 09:01 134 25 148/74 (98) 96 07/03/17 09:00 120 26 95 07/03/17 08:45 110 13 97 07/03/17 08:30 112 16 95 07/03/17 08:15 120 29 92 07/03/17 08:01 112 19 138/72 (94) 95 07/03/17 08:00 112 22 95 07/03/17 08:00 102 07/03/17 07:41 94 Nasal Cannula 2.00 07/03/17 06:11 107 07/03/17 06:01 108 13 146/71 (96) 96 07/03/17 05:01 112 19 138/61 (86) 96 07/03/17 04:01 98.0 102 15 131/63 (85) 93 07/03/17 04:00 102 07/03/17 03:01 108 18 144/70 (94) 94 07/03/17 02:01 110 15 137/62 (87) 94 07/03/17 02:00 110 07/03/17 01:01 112 16 137/73 (94) 94 07/03/17 00:01 97.6 126 25 158/75 (102) 93 07/03/17 00:00 118 07/02/17 23:01 118 21 144/73 (96) 92 07/02/17 22:01 120 23 146/67 (93) 92 07/02/17 22:00 122 07/02/17 21:01 112 16 123/63 (83) 93 07/02/17 20:01 98.6 120 19 139/68 (91) 92 07/02/17 20:00 113 07/02/17 19:10 92 Nasal Cannula 3.00 07/02/17 19:01 112 22 132/69 (90) 92 I/O 07/02/17 07/02/17 07/02/17 07/03/17 07/03/17 07/03/17 07:00 15:00 23:00 07:00 15:00 23:00 Intake Total 1966 ml 600 ml 420 ml Output Total 1500 ml 480 ml 800 ml Balance 466 ml 120 ml -380 ml Intake Oral 600 ml 420 ml IV Total 1966 ml Output Urine Total 1500 ml 480 ml 800 ml # Bowel Movements 0 Result Diagram: 07/03/1750907/03/17509 Objective Remarks GENERAL: WBWN WF,NAD SKIN: Warm and dry. HEAD: Normocephalic. EYES: No scleral icterus. No injection or drainage. NECK: Supple, trachea midline. No JVD or lymphadenopathy. CARDIOVASCULAR: Regular rate and rhythm without murmurs, gallops, or rubs. RESPIRATORY: Breath sounds equal bilaterally. No accessory muscle use. GASTROINTESTINAL: Abdomen soft, non-tender, nondistended. MUSCULOSKELETAL: No cyanosis, or edema. BACK: Nontender without obvious deformity. No CVA tenderness. A/P Assessment and Plan IMPRESSION: 1. Pneumonia. 2. Mucus plugging. 3. Hyponatremia. 4. Sinus tachycardia. 5. History of carcinoma of the breast. PLAN: Cont Abx Aerosol nebs Mucomyst nebs IV Solumedrol Supplement 02 Stable to tr to floor Wean 02 Raj Navas MD July 03, 2017 18:04
[2017-07-03] MEDS: LEVOFLOXACIN 750 MG TAB PO SCH (22:02)
[2017-07-04] VITALS (8 sets, daily range): BP systolic 117–152; BP diastolic 65–76; PULSE 90–108; RESP 21–32; TEMP 97.7–98.2; O2SAT 92–99
[2017-07-04] MEDS: ALPRAZolam 0.25 MG TAB PO PRN (02:09)
[2017-07-04] MEDS: CHLORHEXIDINE GLUCONATE 2 % 1 PACK (2 CLOTHS)(taper/protocol) TOPICAL SCH (04:00)
[2017-07-04] MEDS: RESP: ACETYLCYSTEINE 10% 10 ML NEB NEB SCH ×4 (04:00→15:31)
[2017-07-04] MEDS: RESP: ALBUTEROL 2.5 MG/IPRATROPIUM 0.5 MG NEB (SCH) INH ×4 (04:00→15:31)
[2017-07-04] MEDS: SODIUM CHLORIDE 0.9% FLUSH 10 ML FLUSH IV FLUSH PRN (05:12)
[2017-07-04] MEDS: methylPREDNISolone SOD SUCC 125 MG/2 ML VIAL IV PUSH SCH ×2 (05:12→12:21)
[2017-07-04] MEDS: ACETAMINOPHEN/HYDROcodone 325 MG/5 MG TAB PO PRN ×2 (05:28→12:19)
[2017-07-04] MEDS: INSULIN ASPART SUPPLEMENTAL SCALE SQ SCH ×2 (08:00→12:20)
[2017-07-04] MEDS: AZITHROMYCIN 250 MG TAB PO SCH (08:36)
[2017-07-04] MEDS: HEPARIN SODIUM - SQ 10,000 UNITS/ML VIAL SQ SCH (08:36)
[2017-07-04] MEDS: guaiFENesin E.R. 600 MG TAB PO SCH (08:36)
[2017-07-04] MEDS: SODIUM CHLORIDE 0.9% FLUSH 10 ML FLUSH IV FLUSH SCH (08:37)
[2017-07-04] MEDS: BUDESONIDE-FORMOTEROL 160/4.5 MCG INHALER INH SCH (08:37)
--- NOTE | 2017-07-04 10:42 | HHI.DCPOC ---
Discharge Care Plan Diagnosis: (1) Acute respiratory failure with hypoxia (2) COPD exacerbation (3) Hyponatremia Goals to Promote Your Health * To prevent worsening of your condition and complications * To maintain your health at the optimal level Directions to Meet Your Goals Take your medications as prescribed Follow your dietary instruction Follow activity as directed Keep your appointments as scheduled Take your immunizations and boosters as scheduled If your symptoms worsen call your PCP, if no PCP go to Urgent Care Center or Emergency Room Smoking is Dangerous to Your Health. Avoid second hand smoke Call the 24-hour hour crisis hotline for domestic abuse at Benigno Rene July 04, 2017 10:42
[2017-07-04] MEDS ORDERED: guaiFENesin ER PO (10:47)
[2017-07-04] MEDS ORDERED: Budeson-Formot 160-4.5 Mcg Inh INH (10:47)
[2017-07-04] MEDS ORDERED: MEDR4PAK PO (10:47)
[2017-07-04] MEDS ORDERED: LEVA750T9 PO (10:47)
[2017-07-04] MEDS ORDERED: Albuterol-Ipratropium Neb INH (10:47)
--- NOTE | 2017-07-04 10:50 | HHI.FF ---
Face to Face Verification Diagnosis: (1) Acute respiratory failure with hypoxia (2) COPD exacerbation (3) Hyponatremia (4) Hyperglycemia Physical Therapy Order: Evaluate and Treat, Improve ambulation, Strength and gait training Home Health Nursing Order: Medical education Signs/symptoms of disease process Oxygen administration education Nursing assessment with vital signs I have seen patient Ngoc Stacy on 07/04/17. My clinical findings support the need for the requested home health care services because: Patient has SOB Deconditioned w/ increased weakness I certify that my clinical findings support that this patient is homebound because: Hx COPD- exertion dyspnea/weakness Benigno Rene July 04, 2017 10:50
--- NOTE | 2017-07-04 14:00 | HHI.DS ---
Discharge Summary Admission Date June 30, 2017 at 20:32 Discharge Date: July 04, 2017 Admitting Diagnosis dyspnea,advanced mucous plugging (1) Acute respiratory failure with hypoxia ICD Code: J96.01 - Acute respiratory failure with hypoxia Diagnosis: Principal (2) Mucus plugging of bronchi ICD Code: J98.09 - Other diseases of bronchus, not elsewhere classified Diagnosis: Principal Status: Acute (3) Hyponatremia ICD Code: E87.1 - Hypo-osmolality and hyponatremia Diagnosis: Principal (4) Hyperglycemia ICD Code: R73.9 - Hyperglycemia, unspecified Diagnosis: Principal Procedures None Brief History - From Admission This is a 72-year-old female with known history of breast cancer, chronic tobacco use who presented to the hospital because of shortness of breath and dyspnea. Patient states that she is in normal state of health until last week when she started developing upper respiratory symptoms with cough and congestion. She started using Robitussin and Mucinex without any improvement. Then over the weekend on Friday and Friday her respiratory status progressively got worse where she cannot take 2 steps without getting very dyspneic. Patient states that she could not even move around or catch her breath on Friday so she came to the emergency department for evaluation. On presentation the patient had O2 saturation of 82% she is immediately put on oxygen with improvement to 94%. Patient still requiring increased O2 supplementation. Patient had CT scan done which did show peribronchial thickening and fairly extensive mucoid plugging in the lower airways especially the right lower lobe. Because of her hypoxia, mucous plugging, difficulty breathing patient was admitted to the ICU for continued care and management. Patient indicates this is similar to when she had pneumonia back in March. She states that her primary medical doctor treated her then with antibiotic injection as well as 2 pill form antibiotics. She try to contact her primary medical doctor before coming to the hospital however he is since retired. CBC/BMP: 07/03/17 0510 07/03/17 0510 Significant Findings Laboratory Tests Test 07/01/17 14:30 07/01/17 16:00 07/02/17 04:57 07/02/17 09:19 Serum Osmolality 272 MOSM/KG (275-295) Urine Osmolality 155 MOSM/KG (300-1300) White Blood Count 14.3 TH/MM3 (4.0-11.0) Red Blood Count 3.00 MIL/MM3 (4.00-5.30) Hemoglobin 10.0 GM/DL (11.6-15.3) Hematocrit 30.6 % (35.0-46.0) Mean Corpuscular Volume 101.8 FL (80.0-100.0) Neutrophils (%) (Auto) 91.7 % (16.0-70.0) Lymphocytes (%) (Auto) 2.9 % (9.0-44.0) Basophils (%) (Auto) 2.8 % (0.0-2.0) Neutrophils # (Auto) 13.1 TH/MM3 (1.8-7.7) Lymphocytes # (Auto) 0.4 TH/MM3 (1.0-4.8) Basophils # (Auto) 0.4 TH/MM3 (0-0.2) Random Glucose 125 MG/DL (74-106) Sodium Level 131 MEQ/L (136-145) Chloride Level 97 MEQ/L (98-107) Test 07/03/17 05:10 White Blood Count 12.3 TH/MM3 (4.0-11.0) Red Blood Count 3.00 MIL/MM3 (4.00-5.30) Hemoglobin 9.8 GM/DL (11.6-15.3) Hematocrit 30.7 % (35.0-46.0) Mean Corpuscular Volume 102.4 FL (80.0-100.0) Mean Corpuscular Hemoglobin Concent 31.8 % (32.0-36.0) Neutrophils (%) (Auto) 89.3 % (16.0-70.0) Lymphocytes (%) (Auto) 4.3 % (9.0-44.0) Basophils (%) (Auto) 3.2 % (0.0-2.0) Neutrophils # (Auto) 11.1 TH/MM3 (1.8-7.7) Lymphocytes # (Auto) 0.5 TH/MM3 (1.0-4.8) Basophils # (Auto) 0.4 TH/MM3 (0-0.2) Random Glucose 129 MG/DL (74-106) Sodium Level 132 MEQ/L (136-145) Potassium Level 3.2 MEQ/L (3.5-5.1) Imaging Last Impressions Chest X-Ray 07/03/17 0600 Signed Impressions: Service Date/Time: June 05:34 - CONCLUSION: No acute disease. Shaun Farrell MD CT Angiography 06/30/17 0000 Signed Impressions: Service Date/Time: Friday, June 30, 2017 19:09 - CONCLUSION: 1. There is peribronchial thickening and fairly extensive mucoid plugging of the lower airways, especially in the right lower lobe. Differential diagnosis includes chronic bronchitis or some form of chronic allergic response or asthma. 2. Negative for pulmonary embolus. Diego Bustillo MD PE at Discharge GENERAL: Well-developed, well-nourished, in no acute distress. alert and orientated HEENT: Head is normocephalic without any lesions or masses noted. Facial features are symmetric. Eyes: Extraocular muscles are intact. Conjunctivae were clear. NECK: Supple without any masses. Trachea midline no deviation. No JVD, CARDIAC: Regular rhythm, regular rate. S1/S2 are heard. No murmurs gallops or rubs. LUNGS: Diminished breath sounds noted bilaterally. No wheeze, rhonchi or rales. No use of accessory muscles on inspiration or expiration. ABDOMEN: Soft, nontender. Nondistended. Bowel sounds heard in all 4 quadrants. No organomegaly or masses. Negative rebound, negative guarding EXTREMITIES: No edema, pulses are equal bilaterally. No cyanosis or clubbing NEUROLOGY: Mood and affect appear appropriate. Cranial nerves II through XII grossly intact. Moving all extremities, speech clear Hospital Course This 72-year-old female who originally presented in the hospital because of acute shortness of breath and dyspnea. Patient had workup done emergency department and found to have CT findings of mucous plugging, consolidations. Patient has significant hypoxia requiring increased O2 supplementation. Patient had rather considerable time to recover if she did not use the oxygen or exerting herself. Human Factors Engineer was initially consulted on the case. I conferred with human resources professional during her initial stay because of the continued hypoxia with possible need for bronchoscopy. They evaluated the patient in follow-up on intubation secondary to CT did not appear to have significant plugging that would require bronchoscopy. Patient continued on treatment for chronic objective pulmonary disease exacerbation, pneumonia. With antibiotics, Solu-Medrol, duo nebs, O2 supplementation. Patient tolerated treatment well and has been weaned down on oxygen she is only on 2 L nasal cannula without any significant desaturations. Patient is clinically stable at this time we will plan discharge home in stable condition with home oxygen and home health care. Pt Condition on Discharge: Stable Discharge Disposition: Disch w/ Home Health Serv Discharge Time: > 30 minutes Discharge Instructions DIET: Follow Instructions for: Heart Healthy Diet, Diabetic Diet Activities you can perform: Regular-No Restrictions Follow up Referrals: PCP Follow-up - 1 Week Pulmonology - 1 Week with Raj Navas MD New Medications: Methylprednisolone Dosepak (Medrol Dosepak) 4 Mg Dspk 4 MG PO DIRECTED, #1 DSPK 0 Refills Per Pharmacist direction Nebulizer (Nebulizer) 1 Mis Mis EA .XX DIRECTED for Breathing Treatment, #1 0 Refills Oxygen (O2) (Oxygen (O2)) Device LITER MANDEEP.CANULA CONTINUOUS for Prevent Hypoxemia, #2 Oxygen Concentrator Portable Gaseous 2 L/min via Nasal Canula Continuous For 99 months Levofloxacin (Levaquin) 750 Mg Tablet 750 MG PO Q24H for Infection for 10 Days, #10 TAB [Albuterol-Ipratropium Neb] () 1 AMPULE NEBU 1 AMPULE INH Q4HR NEB for COPD for 30 Days [Budeson-Formot 160-4.5 Mcg Inh] () 60 PUFF AERO 2 PUFF INH Q12HR for COPD for 30 Days [guaiFENesin ER] () 600 MG TABCR 600 MG PO BID for COPD for 10 Days Benigno Rene July 04, 2017 14:00
--- NOTE | 2017-07-04 18:01 | HHI.PR ---
Subjective Remarks 72 YOWF with H/O ca breast, Pn, Hypoxia Breathing better no Fever Started coughing up some sp Objective Vital Signs Vital Signs Date Time Temp Pulse Resp B/P (MAP) Pulse Ox O2 Delivery O2 Flow Rate FiO2 07/04/17 15:33 96 Nasal Cannula 2.00 07/04/17 12:00 98.2 104 23 140/67 (91) 96 07/04/17 12:00 100 07/04/17 08:00 90 07/04/17 08:00 97.7 100 32 138/65 (89) 95 07/04/17 07:58 95 Nasal Cannula 2.00 07/04/17 05:07 98.2 96 23 117/73 (88) 93 07/04/17 04:00 98 07/04/17 02:13 104 28 125/71 (89) 92 07/04/17 00:00 101 07/04/17 00:00 98.0 108 21 152/76 (101) 99 07/03/17 20:00 97.7 108 22 147/75 (99) 93 07/03/17 20:00 99 07/03/17 20:00 95 Nasal Cannula 2.00 I/O 07/03/17 07/03/17 07/03/17 07/04/17 07/04/17 07/04/17 07:00 15:00 23:00 07:00 15:00 23:00 Intake Total 420 ml 620 ml 600 ml Output Total 800 ml 1200 ml 400 ml Balance -380 ml -580 ml 200 ml Intake Oral 420 ml 620 ml 600 ml Output Urine Total 800 ml 1200 ml 400 ml # Bowel Movements 0 1 Result Diagram: 07/03/17 0510 07/03/17 0510 Objective Remarks GENERAL: WBWN WF,NAD SKIN: Warm and dry. HEAD: Normocephalic. EYES: No scleral icterus. No injection or drainage. NECK: Supple, trachea midline. No JVD or lymphadenopathy. CARDIOVASCULAR: Regular rate and rhythm without murmurs, gallops, or rubs. RESPIRATORY: Breath sounds equal bilaterally. No accessory muscle use. GASTROINTESTINAL: Abdomen soft, non-tender, nondistended. MUSCULOSKELETAL: No cyanosis, or edema. BACK: Nontender without obvious deformity. No CVA tenderness. A/P Assessment and Plan IMPRESSION: 1. Pneumonia. 2. Mucus plugging. 3. Hyponatremia. 4. Sinus tachycardia. 5. History of carcinoma of the breast. PLAN: Cont Abx Aerosol nebs Mucomyst nebs Supplement 02 PO steroids DC plans for home Will FU in office Raj Navas MD July 04, 2017 18:01
== END 2017-07-04 18:11 | disposition home health service (06) | DRG 189 ==
LOC: PHED 17:19 → EDBD 17:19 → PHEDA 20:32 → PHICU 22:30
PROVIDERS: ADMIT Hospitalist; ATTEND Hospitalist
DX: J96.01 Acute respiratory failure with hypoxia (principal); J18.9 Pneumonia, unspecified organism; T17.590A Other foreign object in bronchus causing asphyxiation, initial encounter; E87.1 Hypo-osmolality and hyponatremia; J44.0 Chronic obstructive pulmonary disease with (acute) lower respiratory infection; J44.1 Chronic obstructive pulmonary disease with (acute) exacerbation; R73.9 Hyperglycemia, unspecified; Z72.0 Tobacco use; R00.0 Tachycardia, unspecified; Z23 Encounter for immunization; Z92.21 Personal history of antineoplastic chemotherapy; Z85.3 Personal history of malignant neoplasm of breast; Z92.3 Personal history of irradiation
CPT/HCPCS: 71045; 71275; 80048; 80307; 82948; 83036; 83735; 83930; 83935; 84300; 84443; 85025; 87449; 87641; 87804; 90471; 90732; 93005; 94150; 94618; 94640; 94664; 94667; 94668; 96374; G0009; J1644; J1815; J2930; J7030; J7608; Q9967